=== PATIENT | female | born 1980 | race Caucasian/White ===

== ENCOUNTER → 2017-05-25 | Outpatient (CLI) | payer BC ==
--- NOTE | 2017-05-25 15:43 | MRI ---
STUDY: MRI OF THE CERVICAL SPINE HISTORY: Cervicalgia. Neck pain that radiates into the upper extremities. Comparison: None. Technique: An MRI of the cervical spine including sagittal T1, T2, and T2 STIR, axial T1, and T2 FSE images was performed using standard departmental protocol. Findings: Sagittal images: Visualized portions of the posterior fossa are within normal limits.The craniocervical junction is un remarkable.Vertebral body heights and alignment are within normal limits. There is straightening of u sual cervical lordosis. Marrow signal is age-appropriate.There is no evidence for fracture or signifi cant bone marrow edema. There is no significant prevertebral soft tissue swelling. The surrounding paraspinal soft tissues ar e unremarkable. There is no evidence of cord compression. No intrinsic signal abnormalities are ident ified in the spinal cord itself. Axial images: C2 -- C3: Normal. C3 -- C4: Normal. C4 -- C5: Normal. C5 -- C6: Normal. C6 -- C7: Normal. C7 -- T1: Normal. IMPRESSION: 1. No evidence of acute cervical spine abnormality. 2. Straightening of usual cervical lordosis. This finding may be positional or secondary to muscle sp asm. Clinical correlation is recommended. Reported By:
== END ==
LOC: RAD 14:27
PROVIDERS: ATTEND Internal Medicine
DX: M54.2 Cervicalgia (principal)
CPT/HCPCS: 72141

== ENCOUNTER → 2017-05-30 | Outpatient (CLI) | payer BC ==
--- NOTE | 2017-05-31 09:29 | MRI ---
STUDY: MRI OF THE THORACIC SPINE History: Cervicalgia. Neck pain with radiation to upper extremities. Technique: An MRI examination of thoracic spine was performed using sagittal T1, T2, T2 STIR, and axi al T1 and T2 GRE images. 12 cc of Omniscan was administered intravenously without reported complication following acquisition of informed written consent. Subsequently, sagittal and axial T1 FS images of the thoracic spine were performed and reviewed. Comparison: MRI cervical spine from May 25, 2017. Findings: Pre gadolinium spine: Vertebral body alignment is within normal limits. Marrow signal is age-appropri ate. Marrow signal is age-appropriate. There is a T1 isointense and T2 hyperintense focus in the T3 vertebral body. This is not significantly changed since the prior MRI of the cervical spine. Intervertebral discs are fairly well preserved. There is no evidence of thoracic spinal cord miryam no. No intrinsic signal abnormalities are identified within the thoracic spinal cord itself. Axial images show no evidence of focal disc bulge or focal disk herniation. There is no evidence of c ord compression. There is no evidence of significant spinal stenosis. There is no significant neural foraminal stenosis. Post gadolinium spine: Following the uneventful administration of intravenous gadolinium, there is en hancement of the previously noted T2 hyperintense lesion in the T3 vertebral body. No other abnormal foci of bone enhancement are identified. Is no evidence of abnormal spinal cord or meningeal enhancem ent. Impression: 1. Solitary focus of T2 hyperintensity and enhancement in the T3 vertebral body. Imaging characterist ics remain somewhat nonspecific, and differential considerations would include a solitary metastasis, myeloma, as well as some benign etiologies such as atypical hemangioma. 2. Further evaluation for myeloma or primary source for metastatic disease is recommended. Reported By:
== END ==
LOC: RAD 15:23
PROVIDERS: ATTEND Internal Medicine
DX: M54.2 Cervicalgia (principal); R93.7 Abnormal findings on diagnostic imaging of other parts of musculoskeletal system
CPT/HCPCS: 72157

== ENCOUNTER → 2017-06-09 | Outpatient (CLI) | payer BC ==
--- NOTE | 2017-06-09 13:20 | CT ---
Indication: Back pain Exam: CT scan lumbar spine Technique: Axial spiral images were obtained from T11 through the lower sacrum with coronal and sagit yuliana reconstructions. Automated dose control was utilized. Findings: The lumbar vertebra are well aligned. There is mild disc space narrowing throughout. No fra cture or subluxation is seen. There small disc bulges at L4 -5 and L5-S1. There are mild hypertrophic changes of facets throughout the lower lumbar spine with no significant spinal stenosis. There are n o pars defects. There is contrast in the collecting systems of both kidneys. The paraspinous soft tis sues are unremarkable. The neural foramina are clear. The visualized lung bases are clear. Impression: Mild degenerative disc space narrowing throughout with no acute abnormality seen. Small central disc bulges at L4-5 and L5-S1 . Mild osteoarthritic changes of the facets throughout the lower lumbar spine with no significant spina l stenosis. Reported By:
--- NOTE | 2017-06-12 09:26 | MRI ---
STUDY: MRI OF THE BRAIN WITHOUT AND WITH GADOLINIUM History: Disorder of pituitary gland. Comparison: None. Technique: Multiplanar multi-sequence MRI of the brain was obtained utilizing standard departmental p rotocol. Sagittal and axial T1, axial T2, FLAIR, diffusion (DWI/ADC) images through the brain were pe rformed. 13 cc of Omniscan was administered without reported complication following acquisition of informed wr itten consent. Post gadolinium axial and coronal whole brain images were performed. High-resolution pre and post gadolinium sagittal and coronal T1 images and coronal T2 images through the pituitary gland were also performed. Findings: Pre gadolinium brain: The sulci, cisterns, and ventricles are age appropriate. There is no evidence o f acute territorial infarction, hemorrhage, mass, mass effect or midline shift. There are no abnormal intra-axial or extra-axial fluid collections. The major intracranial vascular flow voids are intact. Post gadolinium brain: Following the uneventful administration of intravenous gadolinium, there is no evidence of abnormal brain parenchymal or leptomeningeal enhancement. MRI pituitary: High-resolution images through the level of pituitary gland show a 3.2 mm focus of rel ative decreased enhancement in the right side of the pituitary gland. This is seen only on a single c oronal image, not identified on corresponding sagittal views. The remainder of the pituitary gland is normal in appearance. There is slight infundibular deviation to the left. There is no evidence of ex tension into the suprasellar cistern. There is no evidence of optic chiasm or optic nerve compression . There is no cavernous sinus invasion. The cavernous internal carotid artery flow voids are intact. IMPRESSION: 1. No evidence of acute intracranial abnormality. 2. Focus of relative decreased enhancement in the right side of the pituitary gland measuring 3.2 mm . This is only seen on the single image, and there are no dynamic gadolinium-enhanced images to confi rm variable gadolinium uptake within this region. Clinical correlation for pituitary microadenoma is recommended. Reported By:
== END ==
LOC: RAD 10:24
PROVIDERS: ATTEND Neurological Surgery
DX: E23.7 Disorder of pituitary gland, unspecified (principal); M54.2 Cervicalgia; M51.26 Other intervertebral disc displacement, lumbar region; M51.27 Other intervertebral disc displacement, lumbosacral region
CPT/HCPCS: 70551; 72131